=== PATIENT | female | born 1945 | race Caucasian/White ===

== ENCOUNTER 2016-12-24 12:36 | Inpatient (IN) | payer MEDICARE, OTHER ==
[~2016-12-24] VITALS: Ht 162.6 cm; Wt 84.7 kg
[~2016-12-24 12:36] MED LIST: BENA10TA2 PO; OMEP40CA6 PO
[2016-12-24] MEDS ORDERED: ASPIRIN 81 MG TABLET CHEW ONE (13:26)
[2016-12-24] MEDS ORDERED: SODIUM CHLORIDE 0.9% 1,000ML IVBOLUS ONE (13:30)
[2016-12-24] MEDS ORDERED: ASPIRIN 81 MG TABLET CHEW PO ONE (13:30)
[2016-12-24] MEDS ORDERED: SODIUM CHLORIDE FLUSH 10ML SYR IVF ONE (13:30)
[2016-12-24 13:32] LABS: HEMATOCRIT 46.4 % (34.6-47.8); HEMOGLOBIN 15.7 g/dL (11.7-16.4); WHITE BLOOD COUNT 5.4 x10^3/uL (3.4-10)
[2016-12-24 13:41] LABS: ASPARTATE AMINO TRANSFERASE 18 U/L (15-37); BLOOD UREA NITROGEN 21 mg/dL (7-18)
[2016-12-24 13:47] LABS: IS PT STATUS REG ER OR PRE ER? YES
[2016-12-24] MEDS ORDERED: LORA0.5T PO (14:32)
[2016-12-24] MEDS ORDERED: ASPI-496 PO (14:33)
[2016-12-24] MEDS ORDERED: LORazepam 1MG TABLET PO PRN (15:00)
[2016-12-24] MEDS ORDERED: ENOXAPARIN 40 MG/0.4 ML SQ SCH (15:00)
[2016-12-24] MEDS ORDERED: ONDANSETRON ODT 4 MG PO PRN (15:00)
[2016-12-24] MEDS ORDERED: NITROGLYCERIN 0.4 MG BOTTLE (25 TABS) SL PRN (15:00)
[2016-12-24] MEDS ORDERED: NITROGLYCERIN 0.4 MG/SPRAY SL PRN (15:00)
[2016-12-24 15:21] VITALS: BP 151/77
[2016-12-24] MEDS: SODIUM CHLORIDE 0.9% 1,000 ML IV SCH (15:49)
[2016-12-24 19:00] VITALS: BP 125/74
[2016-12-24 19:26] LABS: IS PT STATUS REG ER OR PRE ER? NO
[2016-12-24] MEDS: BENAZEPRIL 10 MG TABLET PO SCH (21:54)
[2016-12-25 01:44] LABS: IS PT STATUS REG ER OR PRE ER? NO
[2016-12-25 02:30] VITALS: BP 100/58
[2016-12-25] MEDS: SODIUM CHLORIDE 0.9% 1,000 ML IV SCH (04:04)
[2016-12-25 05:39] LABS: HEMATOCRIT 38.3 % (34.6-47.8); HEMOGLOBIN 13.1 g/dL (11.7-16.4)
[2016-12-25 05:49] LABS: ASPARTATE AMINO TRANSFERASE 16 U/L (15-37); BLOOD UREA NITROGEN 17 mg/dL (7-18)
[2016-12-25] MEDS ORDERED: ASPIRIN 325 MG TABLET EC PO SCH (06:00)
[2016-12-25 08:10] VITALS: BP 146/80
[2016-12-25] MEDS: BENAZEPRIL 10 MG TABLET PO SCH (08:11)
[2016-12-25] MEDS ORDERED: REGADENOSON 0.4 MG/5 ML SYRINGE ONE (08:54)
[2016-12-25] MEDS ORDERED: ASPIRIN 81 MG TABLET EC PO SCH (09:00)
[2016-12-25] MEDS ORDERED: OMEPRAZOLE 20 MG CAPSULE.DR PO SCH (09:00)
== END 2016-12-25 17:06 | disposition home or self-care (01) | DRG 392 ==
LOC: ED 14:30 → EDIP 14:34 → ED 14:54 → 5SO 15:30
PROVIDERS: ADMIT Hospitalist; ATTEND Hospitalist
DX: K21.9 Gastro-esophageal reflux disease without esophagitis (principal); N17.9 Acute kidney failure, unspecified; R07.89 Other chest pain; E74.39 Other disorders of intestinal carbohydrate absorption; F41.9 Anxiety disorder, unspecified; I10 Essential (primary) hypertension; I16.0 Hypertensive urgency; I49.9 Cardiac arrhythmia, unspecified
CPT/HCPCS: 36415; 71010; 78452; 80053; 80061; 83036; 83880; 84439; 84443; 84484; 85025; 85379; 85610; 93005; 93017; 96360; 96361; J2785; A9502; C9898; J7030